=== PATIENT | male | born 1950 | race Caucasian/White ===

== ENCOUNTER 2017-04-28 10:03 | Outpatient (CLI) ==
[2015-09-10 11:10] VITALS: BMI 22.3
[2017-04-28 10:23] LABS: BASOPHILS # (AUTO) 0.1 K/uL (0-0.2); BASOPHILS % (AUTO) 0.7 % (0.0-3.0); EOSINOPHILS # (AUTO) 0.4 K/ul (0.0-0.7); EOSINOPHILS % (AUTO) 5.5 % (0.0-7.0); HEMATOCRIT 31.9 % (42.0-52.0); HEMOGLOBIN 10.9 g/dl (14.0-18.0); IMMATURE GRANULOCYTE % (AUTO) 0.5 % (0.0-5.0); LYMPHOCYTES # (AUTO) 1.1 K/uL (0.60-3.4); LYMPHOCYTES % (AUTO) 14.1 (10.0-50.0); MEAN CORPUSCULAR HEMOGLOBIN 34.2 pg (27.0-31.0); MEAN CORPUSCULAR HGB CONC 34.2 (31.8-35.4); MONOCYTES # (AUTO) 1.1 K/uL (0.4-2.0); MONOCYTES % (AUTO) 14.3 (0-10); NEUTROPHILS # (AUTO) 4.9 K/ul (2.0-6.9); NEUTROPHILS % (AUTO) 64.9; PLATELET COUNT 131 10^3/uL (140-440); RED BLOOD COUNT 3.19 10^6/ul (4.70-6.10); WHITE BLOOD COUNT 7.57 K/ul (4.2-10.2)
[2017-04-28 10:41] LABS: PARTIAL THROMBOPLASTIN TIME 25.6 SEC (23.9-40.0); PROTHROMBIN TIME 9.8 SEC (9.3-11.0)
[2017-04-28 10:46] LABS: ALBUMIN 3.2 g/dL (3.4-5.0); ALBUMIN/GLOBULIN RATIO 0.76; ANION GAP 11.9; BILIRUBIN,TOTAL 0.94 mg/dL (0.00-1.20); CALCIUM 9.2 mg/dL (8.2-10.2); CHOL/HDL RATIO 3.2 (4.5-6.4); CREATININE 0.75 mg/dL (0.60-1.10); POTASSIUM 3.9 mmol/L (3.5-5.1); TOTAL PROTEIN 7.4 g/dL (5.8-8.1)
== END 2017-04-28 10:04 | disposition home or self-care (01) ==
LOC: LAB 10:03
PROVIDERS: ATTEND Nurse Practitioner Family
DX: I82.90 Acute embolism and thrombosis of unspecified vein (principal); I25.810 Atherosclerosis of coronary artery bypass graft(s) without angina pectoris; J44.9 Chronic obstructive pulmonary disease, unspecified; K74.60 Unspecified cirrhosis of liver; Z12.5 Encounter for screening for malignant neoplasm of prostate
CPT/HCPCS: 36415; 80053; 80061; 85025; 85610; 85730

== ENCOUNTER 2017-10-09 11:24 | Outpatient (CLI) ==
[2015-09-10 11:10] VITALS: BMI 22.3
== END 2017-10-09 11:25 | disposition home or self-care (01) ==
LOC: FCC-LAB 11:24
PROVIDERS: ATTEND Nurse Practitioner Family
DX: B19.20 Unspecified viral hepatitis C without hepatic coma (principal); I10 Essential (primary) hypertension; Z12.5 Encounter for screening for malignant neoplasm of prostate
CPT/HCPCS: 36415; 80053; 80061; 85025

== ENCOUNTER 2017-11-21 10:58 | Outpatient (CLI) ==
[2015-09-10 11:10] VITALS: BMI 22.3
--- NOTE | 2017-11-21 13:01 | DI ---
EXAM: Radiographs, left foot HISTORY: Left foot pain. COMPARISON: None available. TECHNIQUE: Three views. FINDINGS: Bone mineralization is normal. No fracture or dislocation identified. Question old fract ure deformity of the distal fibula which is not fully characterized. Joint spaces are maintained. N o erosions are seen. No osseous destruction detected. No localized soft tissue abnormality identifi ed. Atherosclerotic calcifications are present. IMPRESSION: No acute abnormality of the left foot.
== END 2017-11-21 10:59 | disposition home or self-care (01) ==
LOC: LAB 10:58
PROVIDERS: ATTEND Nurse Practitioner Family
DX: M79.672 Pain in left foot (principal)
CPT/HCPCS: 36415; 84550

== ENCOUNTER 2017-11-30 08:29 | Outpatient (CLI) ==
[2015-09-10 11:10] VITALS: BMI 22.3
--- NOTE | 2017-11-30 09:03 | DI ---
EXAM: Two views of the chest. History: Right lung cancer. Comparison: Chest radiograph 10/07/2015, chest CT 06/13/2016 Findings: Postsurgical changes with scarring seen in the right upper lung. No pleural fluid and no p neumothorax. There is new discoid infiltrate within the left perihilar region. No acute osseous abn ormalities. Impression: New discoid infiltrate within the left perihilar region could represent atelectasis or pn eumonia. Follow-up recommended to assure resolution. If this does not resolve, then recommend corre lation with contrast enhanced chest CT
== END 2017-11-30 08:30 | disposition home or self-care (01) ==
LOC: RAD 08:29
PROVIDERS: ATTEND Internal Medicine Hematology & Oncology
DX: C34.31 Malignant neoplasm of lower lobe, right bronchus or lung (principal)

== ENCOUNTER 2017-12-11 13:27 | Outpatient (CLI) ==
[2015-09-10 11:10] VITALS: BMI 22.3
--- NOTE | 2017-12-11 15:13 | US ---
EXAM: Ultrasound thyroid. HISTORY: Thyroid nodule. COMPARISON: None available. TECHNIQUE: Art-scale and color Doppler images. FINDINGS: The right lobe of the thyroid measures 4.3 x 1.6 x 1.2 cm. There is homogeneous echogenicity without discrete nodule. The thyroid isthmus measures 0.2 cm. The left lobe of the thyroid measures 3.6 x 1.5 x 1.3 cm. There is homogeneous echogenicity without discrete nodule. IMPRESSION: Normal thyroid ultrasound.
== END 2017-12-11 13:28 | disposition home or self-care (01) ==
LOC: RAD 13:27
PROVIDERS: ATTEND Radiology Radiation Oncology
DX: R91.1 Solitary pulmonary nodule (principal); Z92.3 Personal history of irradiation; Z90.2 Acquired absence of lung [part of]; Z85.118 Personal history of other malignant neoplasm of bronchus and lung

== ENCOUNTER 2018-01-03 09:03 | Outpatient (CLI) ==
[2015-09-10 11:10] VITALS: BMI 22.3
--- NOTE | 2018-01-03 11:54 | DI ---
EXAM: Chest two view, frontal and lateral views. HISTORY: Right lung cancer. COMPARISON: 11/30/2017. FINDINGS: Heart size is normal. [place] seen in the right perihilar and infrahilar region. There i s stable fullness of the right hilum. Band-like opacity in the left lower lobe perihilar region is s table. No new opacities seen. No pleural effusion or pneumothorax detected. Postsurgical changes o f the right posterior sixth rib again seen. Since prior study, there has been no significant interva l change IMPRESSION: 1. Stable left lower lobe opacity. Continued follow-up is recommended. 2. Stable postoperative changes of the right lung.
== END 2018-01-03 09:04 | disposition home or self-care (01) ==
LOC: RAD 09:03
PROVIDERS: ATTEND Internal Medicine Hematology & Oncology
DX: C34.31 Malignant neoplasm of lower lobe, right bronchus or lung (principal)

== ENCOUNTER 2018-03-27 11:35 | Outpatient (CLI) ==
[2015-09-10 11:10] VITALS: BMI 22.3
== END 2018-03-27 11:36 | disposition home or self-care (01) ==
LOC: RHC-LAB 11:35
PROVIDERS: ATTEND Nurse Practitioner Family
DX: I10 Essential (primary) hypertension (principal); J44.9 Chronic obstructive pulmonary disease, unspecified; Z72.0 Tobacco use; Z95.5 Presence of coronary angioplasty implant and graft
CPT/HCPCS: 36415; 80053; 85025

== ENCOUNTER 2018-10-11 07:07 | Outpatient (CLI) ==
[2015-09-10 11:10] VITALS: BMI 22.3
== END 2018-10-11 07:08 | disposition home or self-care (01) ==
LOC: LAB 07:07
DX: C22.0 Liver cell carcinoma (principal)
CPT/HCPCS: 36415; 80053; 85025; 85610

== ENCOUNTER 2018-11-13 10:13 | Outpatient (POV) ==
[2015-09-10 11:10] VITALS: BMI 22.3
== END 2018-11-13 17:00 ==
LOC: OUTPT 10:13
PROVIDERS: ATTEND Otolaryngology
DX: H91.90 Unspecified hearing loss, unspecified ear (principal)
CPT/HCPCS: 92557; 92567